=== PATIENT | female | born 1970 | race Two or more races ===

== ENCOUNTER 2017-09-30 07:47 | Emergency (ER) | payer MEDICAID, SELFPAY ==
[~2017-09-30] VITALS: Ht 157.5 cm; Wt 63.7 kg
[2017-09-30] MEDS ORDERED: SODIUM CHLORIDE 0.9% 1,000 ML IV ONE (08:53)
[2017-09-30] MEDS ORDERED: MORPHINE SULFATE 4 MG/ML, 1ML ONE ×2 (09:00→10:09)
[2017-09-30] MEDS ORDERED: SODIUM CHLORIDE 0.9% 1,000ML IVBOLUS ONE (09:00)
[2017-09-30] MEDS ORDERED: ONDANSETRON 2MG/ML, 2ML ONE ×2 (09:00→12:26)
[2017-09-30] MEDS ORDERED: ONDANSETRON 2MG/ML, 2ML IVPush ONE ×2 (09:00→13:00)
[2017-09-30] MEDS ORDERED: LISI-167 PO (09:00)
[2017-09-30] MEDS ORDERED: HYDR-3240 PO (09:01)
[2017-09-30] MEDS: MORPHINE SULFATE 4 MG/ML, 1ML IVPush PRN ×2 (09:19→10:13)
[2017-09-30 09:21] LABS: HEMATOCRIT 43.8 % (34.6-47.8); HEMOGLOBIN 14.6 g/dL (11.7-16.4); WHITE BLOOD COUNT 10.7 x10^3/uL (3.4-10)
[2017-09-30 09:32] LABS: BLOOD UREA NITROGEN 9 mg/dL (7-18)
[2017-09-30] MEDS ORDERED: KETOROLAC 30 MG/1 ML ONE (12:26)
[2017-09-30] MEDS ORDERED: KETOROLAC 30 MG/1 ML IVPush ONE (12:30)
[2017-09-30 13:26] VITALS: BP 117/70
== END 2017-09-30 13:28 | disposition home or self-care (01) ==
LOC: ED 10:12
DX: N13.2 Hydronephrosis with renal and ureteral calculous obstruction (principal)
CPT/HCPCS: 36415; 74176; 80048; 81001; 82040; 85025; 87086; 96361; 96374; 96375; 96376; 99285; J1885; J2405; J7030

== ENCOUNTER 2018-12-15 11:03 | Emergency (ER) | payer MEDICAID ==
[~2018-12-15] VITALS: Ht 157.5 cm; Wt 62.0 kg
[~2018-12-15 11:03] MED LIST: HYDR-3240 PO; LISI-167 PO
--- NOTE | 2018-12-15 11:25 | NUR ---
FIRST CONTACT WITH PT. NADN. Pt resting on gurney. ED PA at bedside. Pt c/o RLQ pain starting "about one hour ago." PT denies n/v/d, sob, cp, dizziness, or trauma. Pt denies blood in urine or stool. Pt is AOX4, CMS intact, skin is pink, warm, dry, and pt has steady gait and balance walking to restroom to provide urine sample. Pt connected to NIBP and continous pulse ox. All safety measures in place. Call light within reach. NADN. No needs expressed.
[2018-12-15 11:59] LABS: BASOPHILS # (AUTO) 0.05 x10^3/uL (0-0.1); BASOPHILS % (AUTO) 1 % (0-1); EOSINOPHILS # (AUTO) 0.24 x10^3/uL (0-0.4); EOSINOPHILS % (AUTO) 3 % (1-7); LYMPHOCYTES # (AUTO) 3.25 x10^3/uL (1-3.4); LYMPHOCYTES % (AUTO) 45 % (22-44); MD NO; MEAN CORPUSCULAR HEMOGLOBIN 26.6 pg (27.0-34.8); MEAN CORPUSCULAR HGB CONC 33.3 g/dL (32.4-35.8); MEAN CORPUSCULAR VOLUME 79.8 fL (80-100); MEAN PLATELET VOLUME 7.6 fL (7.4-10.4); MONOCYTES # (AUTO) 0.53 x10^3/uL (0.2-0.8); MONOCYTES % (AUTO) 7 % (2-9); NEUTROPHILS # (AUTO) 3.17 x10^3/uL (1.8-6.8); NEUTROPHILS % (AUTO) 44 % (42-75); PLATELET COUNT 306 x10^3/uL (130-400); RED BLOOD COUNT 5.94 x10^6/uL (3.82-5.3); RED CELL DISTRIBUTION WIDTH 13.8 % (9.6-15.2)
[2018-12-15 12:07] LABS: ANION GAP 5 mmol/L (5-15); CALCIUM 9.3 mg/dL (8.5-10.1); CHLORIDE 107 mmol/L (98-107)
[2018-12-15 12:13] LABS: ALANINE AMINOTRANSFERASE 39 U/L (12-78); ALKALINE PHOSPHATASE 58 U/L (45-117); BILIRUBIN,TOTAL 0.7 mg/dL (0.2-1.0); TOTAL PROTEIN 7.6 g/dL (6.4-8.2)
[2018-12-15 12:27] LABS: MICROSCOPIC INDICATED
[2018-12-15 12:30] LABS: CULTURE INDICATED? NO
--- NOTE | 2018-12-15 13:13 | NUR ---
rechecked bp stable started iv for ct
--- NOTE | 2018-12-15 13:46 | NUR ---
pt is waiting for ct
[2018-12-15] MEDS ORDERED: OMNIPAQUE 350 MG/ML, 100ML BOTTLE ONE (14:04)
--- NOTE | 2018-12-15 14:22 | NUR ---
given all dc instruction iv was out pt ambulated to check out vss stable
[2018-12-15 14:23] VITALS: BP 123/78
== END 2018-12-15 14:25 | disposition home or self-care (01) ==
LOC: ED 13:01
DX: R10.31 Right lower quadrant pain (principal); R10.11 Right upper quadrant pain; I10 Essential (primary) hypertension
CPT/HCPCS: 36415; 74177; 76700; 80053; 81001; 83690; 84703; 85025; 99284; Q9967